=== PATIENT | male | born 1970 | race Caucasian/White ===

== ENCOUNTER 2022-09-26 09:12 | Day surgery (SDC) | payer OTHER ==
[2022-09-26] MEDS ORDERED: Sodium Chloride 0.9(Preservative Free) 10 ML IJ ONE (09:13)
[2022-09-26] MEDS ORDERED: Depo-Medrol 40 MG/ML IM ONE (09:13)
[2022-09-26] MEDS ORDERED: Reglan 10 MG/2 ML ONE (09:31)
[2022-09-26] MEDS ORDERED: Pepcid 20 MG VIAL IV ONE (09:31)
[2022-09-26] MEDS ORDERED: Reglan 10 MG/2 ML IV ONE (09:38)
[2022-09-26] MEDS ORDERED: Pepcid 20 MG VIAL IV SCH (09:38)
[2022-09-26] MEDS ORDERED: Lactated Ringers 1,000 ML IV ONE (10:05)
[2022-09-26] MEDS ORDERED: DIPRIVAN 200 MG/20 ML IV ONE (10:36)
[2022-09-26] MEDS ORDERED: Ketamine HCl 50 MG/ML ONE (10:38)
--- NOTE | 2022-09-26 11:41 | XRAY ---
Indication: Left L4-S1 transforaminal HANH. Intraoperative fluoroscopy provided for 54 seconds. 5 digital spot image submitted for interpretation demonstrates posterior needle tips projecting over the expected left L4-L5 nerve roots. Small amount of contrast injected for needle tip placement. Correlate with intraoperative findings/report.
--- NOTE | 2022-09-26 12:32 | XRAY ---
54 seconds of fluoroscopy was used in surgery for a left L4-S1 transforaminal HANH.
== END 2022-09-26 11:03 | disposition home or self-care (01) ==
LOC: SDC-PAIN 09:12
PROVIDERS: ATTEND Psychiatry & Neurology Pain Medicine
DX: M54.16 Radiculopathy, lumbar region (principal); E11.9 Type 2 diabetes mellitus without complications; Z79.899 Other long term (current) drug therapy
CPT/HCPCS: 64483; 64484; 72100; 77003; 82947; J1030; J2704; Q9966